=== PATIENT | male | born 1970 | race Caucasian/White ===

== ENCOUNTER 2023-04-26 05:33 | Emergency (ER) | payer SELFPAY ==
--- NOTE | ~2023-04-26 | CT_ITS ---
EXAMINATION: CT ABDOMEN AND PELVIS WITH CONTRAST CLINICAL INFORMATION: Abdominal pain epigastric region. COMPARISON: None available. TECHNIQUE: Multidetector volumetric images were obtained from the superior aspect of the liver through the pubic symphysis following administration 85 mL of Omnipaque 350 intravenous contrast. Sagittal and coronal reformatted images were obtained on the technologist's workstation. Oral contrast: No This CT examination was performed using dose optimization techniques as appropriate, variously including the following: *Automated exposure control *Adjustment of mA and/or kV according to patient size (this includes techniques or standardized protocols for targeted exams where dose is matched to indication/reason for exam; i.e. extremities or head) *Use of iterative reconstruction technique DLP: 486 mGy-cm FINDINGS: LUNG BASES: There is a 4 mm nodule left lung base adjacent to the major fissure image 2/8 and a 3 mm nodule right lower lobe axial image 11/8. There is mild thickening of the GE junction and a small hiatal hernia. LIVER, GALLBLADDER, AND BILIARY TREE: The liver is normal in size, shape, and attenuation. There is a round lesion with lobulated wall left hepatic lobe measuring 4 cm with peripheral enhancement seen. On axial image 11/3. Findings are suspicious for hemangioma. No additional lesions seen. There is no intrahepatic ductal dilatation. The gallbladder is unremarkable with no evidence of radiopaque gallstones, gallbladder wall thickening, or obvious pericholecystic inflammatory changes. PANCREAS: Unremarkable. SPLEEN: Unremarkable. ADRENAL GLANDS: Unremarkable. KIDNEYS AND URETERS: The kidneys are normal in size, shape, and attenuation. No hydronephrosis, hydroureter, or calculi seen. No perinephric stranding. BLADDER: Unremarkable. GASTROINTESTINAL TRACT: There is moderate stool and gas seen throughout the colon without any significant distention. The small bowel loops are normal caliber. Appendix is normal caliber. ABDOMINAL WALL: Small umbilical hernia containing fat is noted. LYMPH NODES: Normal. VASCULAR: Unremarkable. PELVIC VISCERA: Normal prostate gland. No free air or free fluid. No evidence of inguinal hernia or abnormal pelvic lymph nodes. OSSEOUS STRUCTURES: Mild degenerative disc changes with vacuum disc phenomenon and spondylosis L3-L4 and L5-S1 disc levels. No aggressive lytic or sclerotic process seen. CT/CT abdomen pelvis w IV con IMPRESSION: 1. No acute intra-abdominal process seen. 2. Mild constipation. 3. Small umbilical hernia containing fat. 4. There is a round lesion with lobulated wall left hepatic lobe measuring 4 cm with peripheral enhancement suspicious for hemangioma. 5. Mild thickening of the GE junction with a small hiatal hernia. 6. Small pulmonary nodules. No follow-up is needed Fleischner guidelines were followed.
[2023-04-26 05:40] VITALS: BP 130/61; PULSE 107; RESP 22; TEMP 36.6; O2SAT 98; BMI 29.0
[2023-04-26 05:51] LABS: MANUAL DIFF FLAG NO
[2023-04-26 05:52] LABS: Basophils Absolute Auto 0.1 X10*3/uL (0.0-0.2); Basophils Percent Auto 0.6 % (0-2); Eosinophils Percent Auto 0.1 % (0-4); Hematocrit 52.4 % (42.0-52.0); Imm Gran Abs Auto 0.04 X10*3/uL (0.00-0.03); Imm Gran Pct Auto 0.3 % (0.0-0.4); Mean Corpuscular HGB Conc 34.4 g/dl (31.0-36.0); Mean Corpuscular Hemoglobin 31.2 pg (27.0-33.0); Mean Corpuscular Volume 90.8 fL (80.0-98.0); Mean Platelet Volume 10.2 fL (9.4-12.4); Monocytes Absolute Auto 1.4 X10*3/uL (0.1-1.2); Monocytes Percent Auto 9.7 % (2-11); Neutrophils Absolute Auto 10.8 x10*3/uL (2.0-8.3); Neutrophils Percent Auto 75.3 % (45-73); Platelet Count 321 X10*3/uL (160-400); Red Blood Count 5.77 X10*6/uL (4.60-5.80); Red Cell Distribution Width 12.1 % (11.0-16.0); White Blood Count 14.4 X10*3/uL (4.8-10.8)
[2023-04-26 06:10] LABS: Alanine Aminotransferase 16 U/L (0-40); Albumin Level 4.3 g/dL (3.5-5.0); Alkaline Phosphatase 69 U/L (39-117); Anion Gap 24 (12-20); Aspartate Amino Transferase 29 U/L (5-37); Bilirubin Total 1.9 mg/dL (0.0-1.0); Blood Urea Nitrogen 10 mg/dL (9-16); Carbon Dioxide 14 mmol/L (22-29); Chloride 102 mmol/L (96-108); Creatinine Clr Calc Pharmacy 77.6; Estimated Glomerular Filt Rate > 60; Glucose Random 138 mg/dL (60-115); Lipase 15 U/L (8-78); Sodium 136 mmol/L (135-145); Total Protein 7.9 g/dL (6.5-8.0)
[2023-04-26] MEDS: ondansetron HCL 4 MG/2 ML VIAL IVPUSH (06:21)
--- NOTE | 2023-04-26 06:56 | ED.GENADULT ---
HPI - General Adult General Chief complaint: Abdominal Pain Stated complaint: nausea, vomiting Time Seen by Provider: 04/26/23 06:40 Source: patient Mode of arrival: ambulatory Limitations: no limitations History of Present Illness HPI narrative: 52-year-old male hx of psych issues , emphysema not routinely followed by medical provider presents to the emergency department for evaluation of sudden-onset nausea, vomiting and epigastric pain that started at approximately 130 in the morning, since then has had about 5 episodes of bilious vomit. Reports pain is epigastric nonradiating. He tells me that when he has these episodes of nausea and vomiting he has a difficult time taking deep breaths. Denies any recent sick contacts. Denies chest pain, fevers, chills, blood in vomit, diarrhea, hematemesis, changes in urinary habits or bowel habits. Does not smoke marijuana, or drink alcohol Related Data Previous Rx's Medication Instructions Recorded ondansetron 4 mg disintegrating 4 mg PO Q6H PRN nausea and 04/26/23 tablet vomiting #14 tabs Allergies Allergy/AdvReac Type Severity Reaction Status Date / Time No Known Allergies Allergy Unverified 11/19/19 19:35 [No Known Allergies*] Review of Systems Review of Systems: Yes all other systems are reviewed and are negative PMFSH Past Medical History Attestation statement: The following information was validated with the patient. Source: old records reviewed and nursing notes reviewed Social History Social History Smoked in Last 30 Days: No Use of substances other than those prescribed or required for medical reasons: No Advance Directives: No Advance Directives Information Provided: Yes Physical Exam ED Vital Signs: Vital Signs - 24 hr 04/26/23 05:40 04/26/23 08:26 04/26/23 09:29 Temperature 97.8 F 97.3 F 98.7 F Pulse Rate 107 H 84 82 Respiratory Rate 22 H 22 H 18 Blood Pressure 130/61 131/71 138/81 Pulse Oximetry 98 100 100 Oxygen Delivery Method Room Air Room Air Room Air 04/26/23 10:27 Temperature 97.4 F Pulse Rate 75 Respiratory Rate 16 Blood Pressure 117/76 Pulse Oximetry 100 Oxygen Delivery Method Room Air BMI result Body Mass Index 29.0 Vital signs stable Appearance: Alert.? Oriented X3.? No acute distress.? Head: Normocephalic, atraumatic, no step-offs or deformities Eyes: Pupils equal, round and reactive to light.? Neck: Normal inspection.? Neck supple.? CVS: Normal heart rate and rhythm.? Pulses normal.? Respiratory: No respiratory distress.? Breath sounds normal.? Abdomen: Soft and nontender.? Skin: Skin warm and dry.? Normal skin color.? Normal skin turgor.? Extremities: No lower extremity edema.? No calf ttp. 5/5 strength to bilateral upper and lower extremities Neuro: Oriented X 3.? No motor deficit.? No sensory deficit. CN 2-12 intact Course Reevaluation(s) Reevaluation #1: CBC with leukocytosis and neutrophil predominance. This could be secondary to nausea/vomiting. Chemistry with elevated anion gap of 24, total bilirubin of 1.9. No previous lab to compare with. Random glucose of 138. At this time will give IV fluids. I did order an abdominal CT due to patient's presentation however I was just informed by nursing staff patient is refusing viral test and CT scan due to being self pay. Time: 07:13 Reevaluation #2: I did go have a conversation with patient and who is at the bedside. Explained to patient that I do recommend a CT scan due to his presentation he is still in significant pain, and having significant nausea that does not seem to be improving. He tells me he is just not sure if he wants a CT scan. I explained to him that we can start with viral testing to see if maybe this explains his nausea, vomiting and abdominal pain and then if needed move onto a CT scan. However I did explain to him based off of his physical exam I suspect this is likely not just a viral illness. He verbalizes understanding of this and tells me that he just does not feel right and he does think that he needs a CT scan. He is requesting something more for nausea and vomiting. I told him I would order Reglan and Benadryl and he tells me he is in significant discomfort now both in his epigastric region and right lower quadrant. Toradol ordered for pain control. I did offer him to speak to registration who will give him information on payment plans. Time: 07:17 Reevaluation #3: Patient refusing Toradol he says it is likely too expensive Refusing EKG Time: 08:12 Additional Reevaluation(s): There is no acute intra-abdominal process seen. Mild constipation. Small umbilical hernia containing fat. There is a round lesion lobulated wall left hepatic lobe measuring 4 cm with peripheral enhancement concerning for hemangioma. Mild thickening of the GE junction with a small hiatal hernia. Small pulmonary nodules. No follow-up is needed. Still having signficiant nausea and vomiting and did request pain meds a few minutes ago due to persistent epigastric pain. 1010 I did review all labs and imaging with patient. Repeat lactic acid still elevated 2.4. Normal coags. Patient refusing urine, EKG, cardiac workup, chest x-ray. Patient and tell me that they would like to leave. Patient states he does not feel like we can fix his problem here in this hospital stays going to be very expensive he tells me he would rather follow-up with outpatient providers in specialist. He says that he feels fine to go with nausea medicine. I did explain to him he has an abnormal bilirubin, lactic acid, anion gap in patient still states he is leaving in its fine. Him and both verbalized understanding of risks associated with leaving against medical advice [id number] When nursing staff went in to go discharge patient he states that he is considering getting an x-ray and EKG now, and he would like results email to him because he is leaving to go to [facility]. I explained to him we can do the exam is no problem however we do not email [facility] results nor do we send him email results of imaging of CT scan or x-ray. They tell me that they would like to leave here due to cleanliness. They now state that finances is not a problem. I did have the charge nurse go speak to patient, due to patient complaints. Lead RN of emergency department aware of this case as well. Patient to sign out against medical advice. And they state they would just rather get everything done at [facility] Medications Administered Discontinued Medications Generic Name Dose Route Start Last Admin Trade Name Freq PRN Reason Stop Dose Admin Diphenhydramine HCl 50 mg 04/26/23 07:07 04/26/23 07:18 Diphenhydramine Hcl 50 Mg/Ml Vial IVPUSH 04/26/23 07:08 50 mg ONCE ONE Administration Sodium Chloride 2,517.45 mls @ 2,517.45 mls/hr 04/26/23 07:46 04/26/23 09:22 Ns 30 ml/kg infuse over 1 hr (2517.45 ml) 04/26/23 08:45 Infused IV Infusion .Q1H STA Piperacillin Sod/Tazobactam 50 mls @ 100 mls/hr 04/26/23 07:46 04/26/23 08:51 Sod 3.375 gm/ Sodium Chloride IV 04/26/23 08:15 Infused ONCE ONE Infusion Iohexol 100 ml 04/26/23 08:17 04/26/23 08:18 Iohexol 350 Mg/Ml 100 Ml Infus..Btl IV 04/26/23 08:18 85 ml ONCE ONE Administration Ketorolac Tromethamine 30 mg 04/26/23 07:13 04/26/23 07:17 Ketorolac Tromethamine 30 Mg/Ml Vial IVPUSH 04/26/23 07:14 Not Given ONCE ONE Ketorolac Tromethamine 30 mg 04/26/23 08:51 04/26/23 09:32 Ketorolac Tromethamine 30 Mg/Ml Vial IVPUSH 04/26/23 08:52 30 mg ONCE ONE Administration Metoclopramide HCl 10 mg 04/26/23 07:07 04/26/23 07:18 Metoclopramide Hcl 10 Mg/2 Ml Vial IVPUSH 04/26/23 07:08 10 mg ONCE ONE Administration Ondansetron HCl 4 mg 04/26/23 06:17 04/26/23 06:21 Ondansetron Hcl 4 Mg/2 Ml Vial IVPUSH 04/26/23 06:18 4 mg ONCE ONE Administration Medical Decision Making Medical Decision Making [facility] Narrative: 52-year-old male presents with nausea, vomiting and epigastric pain since 04/02 this more Physical exam benign Concerns for viral illness versus gastroenteritis versus gastritis. Less likely obstruction. Unlikely acute abdomen, appendicitis, cholecystitis, pancreatitis, diverticulitis. Plan labs, imaging, urine, viral test and CT abdomen pelvis Differential Diagnosis Differential Diagnoses: The differential diagnosis associated with the presentation includes Concerns for viral illness versus gastroenteritis versus gastritis. Less likely obstruction. Unlikely acute abdomen, appendicitis, cholecystitis, pancreatitis, diverticulitis. Admission/Observation Consideration of admission/observation: Escalation of care including admission/observation considered Unlikely Lab Data [facility] Lab Attestation statement: I reviewed the patient's lab results. 04/26/23 05:47 02/23/24 05:47 Labs: Lab Results 04/26/23 04/26/23 04/26/23 Range/Units 05:47 07:27 07:29 WBC 14.4 H (4.8-10.8) X10*3/uL RBC 5.77 (4.60-5.80) X10*6/uL Hgb 18.0 (14.0-18.0) g/dl Hct 52.4 H (42.0-52.0) % MCV 90.8 (80.0-98.0) fL MCH 31.2 (27.0-33.0) pg MCHC 34.4 (31.0-36.0) g/dl RDW 12.1 (11.0-16.0) % Plt Count 321 (160-400) X10*3/uL MPV 10.2 (9.4-12.4) fL Immature Gran % (Auto) 0.3 (0.0-0.4) % Neut % (Auto) 75.3 H (45-73) % Lymph % (Auto) 14.0 L (20-40) % Parke % (Auto) 9.7 (2-11) % Eos % (Auto) 0.1 (0-4) % Baso % (Auto) 0.6 (0-2) % Lymph # (Auto) 2.0 (1.2-4.9) X10*3/uL Parke # (Auto) 1.4 H (0.1-1.2) X10*3/uL Eos # (Auto) 0.0 (0.0-0.4) X10*3/uL Baso # (Auto) 0.1 (0.0-0.2) X10*3/uL Abs Immat Gran (auto) 0.04 H (0.00-0.03) X10*3/uL Absolute Neuts (auto) 10.8 H (2.0-8.3) x10*3/uL Absolute Nucleated RBC 0.000 (0.0-0.012) X10*3/uL Nucleated RBC % (auto) 0.0 (0.0-0.2) /100WBC PT 12.8 (11.1-13.3) SEC INR 1.1 (0.9-1.1) Sodium 136 (135-145) mmol/L Potassium 4.0 (3.3-5.1) mmol/L Chloride 102 (96-108) mmol/L Carbon Dioxide 14 L (22-29) mmol/L Anion Gap 24 H (12-20) BUN 10 (9-16) mg/dL Creatinine 1.14 (0.5-1.4) mg/dL Estim Creat Clear Calc 77.6 Estimated GFR > 60 Random Glucose 138 H (60-115) mg/dL Lactic Acid 3.5 H* (0.5-2.0) mmol/L Lactic Acid F/U @ 2Hr (0.5-2.0) mmol/L Calcium 10.0 (8.4-10.2) mg/dL Total Bilirubin 1.9 H (0.0-1.0) mg/dL AST 29 (5-37) U/L ALT 16 (0-40) U/L Alkaline Phosphatase 69 (39-117) U/L Troponin I High Sens Cancelled 3.0 Total Protein 7.9 (6.5-8.0) g/dL Albumin 4.3 (3.5-5.0) g/dL Lipase 15 (8-78) U/L Hold Green Top See Note COVID-19 (CAYLA) Negative (Negative) COVID-19 Clin Com See Note Influenza Type A (SALLY) Negative (Negative) Influenza Type B (SALLY) Negative (Negative) Influenza A & B Note See Note 04/26/23 Range/Units 09:37 WBC (4.8-10.8) X10*3/uL RBC (4.60-5.80) X10*6/uL Hgb (14.0-18.0) g/dl Hct (42.0-52.0) % MCV (80.0-98.0) fL MCH (27.0-33.0) pg MCHC (31.0-36.0) g/dl RDW (11.0-16.0) % Plt Count (160-400) X10*3/uL MPV (9.4-12.4) fL Immature Gran % (Auto) (0.0-0.4) % Neut % (Auto) (45-73) % Lymph % (Auto) (20-40) % Parke % (Auto) (2-11) % Eos % (Auto) (0-4) % Baso % (Auto) (0-2) % Lymph # (Auto) (1.2-4.9) X10*3/uL Parke # (Auto) (0.1-1.2) X10*3/uL Eos # (Auto) (0.0-0.4) X10*3/uL Baso # (Auto) (0.0-0.2) X10*3/uL Abs Immat Gran (auto) (0.00-0.03) X10*3/uL Absolute Neuts (auto) (2.0-8.3) x10*3/uL Absolute Nucleated RBC (0.0-0.012) X10*3/uL Nucleated RBC % (auto) (0.0-0.2) /100WBC PT (11.1-13.3) SEC INR (0.9-1.1) Sodium (135-145) mmol/L Potassium (3.3-5.1) mmol/L Chloride (96-108) mmol/L Carbon Dioxide (22-29) mmol/L Anion Gap (12-20) BUN (9-16) mg/dL Creatinine (0.5-1.4) mg/dL Estim Creat Clear Calc Estimated GFR Random Glucose (60-115) mg/dL Lactic Acid (0.5-2.0) mmol/L Lactic Acid F/U @ 2Hr 2.4 H* (0.5-2.0) mmol/L Calcium (8.4-10.2) mg/dL Total Bilirubin (0.0-1.0) mg/dL AST (5-37) U/L ALT (0-40) U/L Alkaline Phosphatase (39-117) U/L Troponin I High Sens Total Protein (6.5-8.0) g/dL Albumin (3.5-5.0) g/dL Lipase (8-78) U/L Hold Green Top COVID-19 (CAYLA) (Negative) COVID-19 Clin Com Influenza Type A (SALLY) (Negative) Influenza Type B (SALLY) (Negative) Influenza A & B Note Independent Interpretation I performed an independent interpretation of an: EKG and CT Scan Radiology Impression Discussion of test interpretation with radiology: I have reviewed the radiologist's reading. Critical Care Time Critical Care Time Critical Care Time: Yes Total Critical Care Time: 60 Attestation: I attest to this time spent taking care of the patient, obtaining history, physical, reviewing labs, imaging, speaking to my attending, speaking to specialist. Discharge Plan Discharge Clinical Impression: Abdominal pain, Nausea & vomiting, Left against medical advice Patient Disposition: Home, Self-Care Instructions: Acute Nausea and Vomiting (ED), Abdominal Pain (ED) Additional Instructions: Take your medications as prescribed. If you were prescribed antibiotics today, it is important that you take your medication to their entirety, do not skip any doses, do not finish them early. Follow-up with your primary care provider this week. Return to the emergency department with new or worsening symptoms. Such as fevers, chills, chest pain, shortness of breath, nausea, vomiting, dizziness, headache, vision changes, lethargy In case of emergency call 911 CT/CT abdomen pelvis w IV con IMPRESSION: 1. No acute intra-abdominal process seen. 2. Mild constipation. 3. Small umbilical hernia containing fat. 4. There is a round lesion with lobulated wall left hepatic lobe measuring 4 cm with peripheral enhancement suspicious for hemangioma. 5. Mild thickening of the GE junction with a small hiatal hernia. 6. Small pulmonary nodules. No follow-up is needed Fleischner guidelines were followed. Patient decided to leave against medical advice. I took the time to go over risks of leaving against medical advice including . Patient verbalizes understanding of this. Advised them to come back if they change their mind. Prescriptions: New ondansetron 4 mg tablet,disintegrating 4 mg PO Q6H PRN (Reason: nausea and vomiting) Qty: 14 0RF Referrals: [facility] [place] [facility] [place] [facility] [Provider Group] - 1 day Physician,None [Primary Care Provider] - 2 days Stand Alone Forms: Against Medical Advice
--- NOTE | 2023-04-26 07:10 | PC.NURSE ---
this RN resumed care of pt at this time. a&ox4. vss and up to date. pt presents to the ED w/ nonradiating epigastric abd pain/n/v that started around 2300 last night. pt presents as extremely agitated and uncomfortable. pt extremely pale and diaphoretic. afebrile at this time. pt extremely concerned about paying for the hospital visit. pt concerned about having labs drawn/swabs obtained/ekg performed/etc. jammie WRIGHT notified/aware of pt's concerns in regarding to having abd/pelvis CT w/ contrast completed. pt is asking if there is a way that we can palpate his abdomen to find out what's wrong without having testing completed. pt's abdomen tender upon palpation. pt educated on the importance of testing based on his presentation. plan of care ongoing.
[2023-04-26] MEDS: Metoclopramide HCl 10 MG/2 ML VIAL IVPUSH (07:18)
[2023-04-26] MEDS: diphenhydrAMINE HCL 50 MG/ML VIAL IVPUSH (07:18)
--- NOTE | 2023-04-26 07:26 | PC.NURSE ---
jammie WRIGHT spoke w/ pt in regards to importance of testing. labs/swabs obtained/sent to lab. medication administered per provider order. pt remains extremely uncomfortable but refusing toradol administration despite 9/10 epigastric pain. provider aware of pt's refusal.
[2023-04-26 07:40] LABS: INTERNATIONAL NORM RATIO 1.1 (0.9-1.1); Prothrombin Time 12.8 SEC (11.1-13.3)
--- NOTE | 2023-04-26 07:44 | PC.NURSE ---
pt refusing ekg. provider aware.
[2023-04-26 07:47] LABS: Lactic Acid 3.5 mmol/L (0.5-2.0)
[2023-04-26 07:56] LABS: COVID-19 Test Negative (Negative); IDNOW Serial# 16C4AD1C
[2023-04-26 07:57] LABS: IDNOW Serial# 55D5AD1C; Influenza A Negative (Negative); Influenza B2 Negative (Negative)
--- NOTE | 2023-04-26 08:15 | PC.NURSE ---
delay in medication/IVF administration d/t pt refusing. provider made aware of pt's refusal.
--- NOTE | 2023-04-26 08:16 | MHC.EDTECH ---
patient refusing EKG at this time. ADRIANA remy
[2023-04-26] MEDS: iohexoL 350 MG/ML 100 ML INFUS..BTL IV (08:18)
[2023-04-26] MEDS: Piperacillin Sodium/Tazobactam 3.375 GM in 0.9 % Sodium Chloride 50 ML IV (08:21)
[2023-04-26] MEDS: 0.9 % Sodium Chloride 2,517.45 ML 2517.45 ML IV (08:22)
--- NOTE | 2023-04-26 08:25 | PC.NURSE ---
new 20gIV placed in the left hand. IVF/medication administered per provider order.
[2023-04-26 08:26] VITALS: BP 131/71; PULSE 84; RESP 22; TEMP 36.3; O2SAT 100
[2023-04-26 09:29] VITALS: BP 138/81; PULSE 82; RESP 18; TEMP 37.1; O2SAT 100
[2023-04-26] MEDS: Ketorolac Tromethamine 30 MG/ML VIAL IVPUSH (09:32)
[2023-04-26 09:33] LABS: Reflex Lactate? Lactic Acid Added
--- NOTE | 2023-04-26 09:41 | PC.NURSE ---
medication administered per provider order. effectiveness pending. pt still actively nauseous and vomiting. repeat lactic/obtained and sent to lab. pt remains pale/diaphoretic/uncomfortably but afebrile. pt continues to wait for CT at this time. plan of care ongoing.
[2023-04-26 10:08] LABS: ~Lactic Acid-LAB USE ONLY 2.4 mmol/L (0.5-2.0)
[2023-04-26 10:27] VITALS: BP 117/76; PULSE 75; RESP 16; TEMP 36.3; O2SAT 100
--- NOTE | 2023-04-26 10:36 | PC.NURSE ---
after speaking w/ provider about results of CT - pt requesting to leave AMA. pt refusing chest xray. xray bedside/aware. pt then changed mind and wanted to stay and have ekg and chest xray completed. provider notified/aware. pt continuously going back and forth on whether he wants to complete care in ED or not. extension service specialist in charge aware. nursing supervisors also made aware at this time. plan of care ongoing.
[2023-04-26 11:40] LABS: Reflex Lactate? 2 Y
== END 2023-04-26 10:45 | disposition home or self-care (01) ==
PROVIDERS: Physician Assistant; Emergency Provider Emergency Medicine
DX: R11.2 Nausea with vomiting, unspecified (principal); R10.13 Epigastric pain; K59.00 Constipation, unspecified; K42.9 Umbilical hernia without obstruction or gangrene; R74.02 Elevation of levels of lactic acid dehydrogenase [LDH]; E80.7 Disorder of bilirubin metabolism, unspecified; D72.829 Elevated white blood cell count, unspecified; K76.9 Liver disease, unspecified; R91.8 Other nonspecific abnormal finding of lung field; Z53.29 Procedure and treatment not carried out because of patient's decision for other reasons; Z11.52 Encounter for screening for COVID-19; Z20.828 Contact with and (suspected) exposure to other viral communicable diseases
CPT/HCPCS: 36415; 74177; 80053; 83605; 83690; 84484; 85025; 85610; 87040; 87502; 87635; 96361; 96365; 96375; 99285; J1200; J1885; J2405; J2543; J2765; Q9967